=== PATIENT | female | born 2000 ===

== ENCOUNTER 2021-05-04 19:51 | Emergency (ER) | payer SELFPAY ==
[~2021-05-04] VITALS: Ht 162.6 cm; Wt 81.8 kg
[2021-05-04 19:58] VITALS: TEMP 97.2
[2021-05-04 20:23] LABS: BASO % 0.3 % (0.0-2.0); EOS # 0.3 (0.0-0.7); EOS % 2.7 % (0-4.0); GRAN # 4.7 (1.4-6.5); GRAN % 51.4 % (42.2-75.2); HEMATOCRIT 41.1 % (35.0-45.0); HEMOGLOBIN 13.2 g/dl (12.0-15.0); LYMPH # 3.7 (1.2-3.4); LYMPH % 40.2 % (20.0-51.0); MEAN CELL VOLUME 82 fl (80.0-95.0); MEAN CORPUSCULAR HEMOGLOBIN 26 pg (26.0-32.0); MEAN CORPUSCULAR HGB CONC 32 g/dl (33.0-37.0); MEAN PLATELET VOLUME 9.4 fl (7.4-10.4); MONO # 0.5 (0.1-0.6); MONO % 5.2 % (1.7-9.3); PLATELET COUNT 352 K/mm3 (130-400); REDCELL DISTRIBUTION WIDTH-CV 13.7 % (11.5-14.5)
[2021-05-04 20:33] LABS: ALBUMIN 4.7 gm/dL (3.5-5.0); BILIRUBIN,TOTAL 0.2 mg/dL (0.0-1.0); C-REACTIVE PROTEIN 2.5 mg/dL (0.0-0.9); CALCIUM 9.6 mg/dL (8.4-10.2); CREATININE, serum 0.49 (0.52-1.25)
[2021-05-04 22:46] LABS: COLLECTION METHOD CLEAN CATCH
[2021-05-04 22:54] LABS: MUCOUS Present /lpf; PH 5 (5-8); URINE APPEARANCE Clear; URINE BACTERIA None Seen /hpf; URINE BILIRUBIN Negative (NEGATIVE); URINE BLOOD Negative (NEGATIVE); URINE COLOR Yellow; URINE GLUCOSE Negative (NEGATIVE); URINE KETONE Negative (NEGATIVE); URINE LEUKOCYTE ESTERASE Negative (NEGATIVE); URINE NITRATE Negative (NEGATIVE); URINE PROTEIN(semi-quant) Negative (NEGATIVE); URINE RBC 0-2 /hpf; URINE UROBILINOGEN Negative (NEGATIVE)
[2021-05-04] MEDS ORDERED: ZOFRAN ODT4 MG PO (23:26)
[2021-05-04 23:41] VITALS: BP 144/80; PULSE 78
== END 2021-05-04 23:41 | disposition home or self-care (01) ==
LOC: COL.ER 19:51
PROVIDERS: Student in an Organized Health Care Education/Training Program
DX: R10.33 Periumbilical pain (principal); R11.2 Nausea with vomiting, unspecified; Z87.891 Personal history of nicotine dependence; Z32.02 Encounter for pregnancy test, result negative
CPT/HCPCS: J2270; J2405; J7030; Q9967

== ENCOUNTER 2021-10-24 17:37 | Emergency (ER) | payer SELFPAY ==
[~2021-10-24] VITALS: Ht 157.5 cm; Wt 100.0 kg
[~2021-10-24 17:37] MED LIST: ZOFRAN ODT4 MG PO
[2021-10-24 18:32] VITALS: TEMP 98.1
[2021-10-24 20:32] LABS: COLLECTION METHOD CLEAN CATCH
[2021-10-24 20:35] LABS: BASO % 0.2 % (0.0-2.0); EOS # 0.1 K/mm3 (0.0-0.7); EOS % 1.2 % (0.0-4.0); GRAN # 6.7 K/mm3 (1.4-6.5); GRAN % 67.5 % (42.2-75.2); HEMOGLOBIN 12.1 g/dl (12.0-15.0); LYMPH # 2.5 K/mm3 (1.2-3.4); LYMPH % 25.5 % (20.0-51.0); MEAN CELL VOLUME 82 fl (80.0-95.0); MEAN CORPUSCULAR HEMOGLOBIN 27 pg (26-32); MEAN CORPUSCULAR HGB CONC 34 g/dl (33.0-37.0); MEAN PLATELET VOLUME 9.4 fl (7.4-10.4); MONO # 0.5 K/mm3 (0.1-0.6); MONO % 5.3 % (1.7-9.3); PLATELET COUNT 300 K/mm3 (130-400); RED BLOOD COUNT 4.41 M/mm3 (4.10-5.30); REDCELL DISTRIBUTION WIDTH-CV 13.9 % (11.5-14.5)
[2021-10-24 20:38] LABS: MUCOUS Present (NOT PRESENT); PH 6 (5-8); URINE APPEARANCE Hazy (CLEAR/HAZY); URINE BACTERIA None Seen /hpf (NONE SEEN); URINE BILIRUBIN Negative (NEGATIVE); URINE BLOOD Negative (NEGATIVE); URINE COLOR Yellow (YELLOW); URINE GLUCOSE Negative (NEGATIVE); URINE KETONE Negative (NEGATIVE); URINE LEUKOCYTE ESTERASE Negative (NEGATIVE); URINE NITRATE Negative (NEGATIVE); URINE PROTEIN(semi-quant) Negative (NEGATIVE); URINE RBC 0-2 /hpf (0-2); URINE UROBILINOGEN Negative (NEGATIVE)
[2021-10-24 20:51] LABS: ALBUMIN 3.4 gm/dL (3.5-5.0); BILIRUBIN,TOTAL 0.2 mg/dL (0.2-1.2); CALCIUM 9.1 mg/dL (8.4-10.2); CREATININE, serum 0.52 mg/dL (0.57-1.11); POTASSIUM 3.4 mmol/L (3.5-4.5); TOTAL PROTEIN 7.8 gm/dL (6.2-8.1)
[2021-10-24 21:46] VITALS: BP 142/97; PULSE 105
== END 2021-10-24 21:46 | disposition home or self-care (01) ==
LOC: COL.ER 17:37
PROVIDERS: Nurse Practitioner Primary Care
DX: O9A.212 Injury, poisoning and certain other consequences of external causes complicating pregnancy, second trimester (principal); Z3A.17 17 weeks gestation of pregnancy; W01.198A Fall on same level from slipping, tripping and stumbling with subsequent striking against other object, initial encounter
CPT/HCPCS: J7030

== ENCOUNTER 2022-03-31 21:30 | Outpatient (CLI) | payer MEDICAID ==
[~2022-03-31] VITALS: Ht 162.6 cm; Wt 112.7 kg
[2022-03-31 21:15] VITALS: TEMP 98.4
[~2022-03-31 21:30] MED LIST changes: +PRENATAL TABLET PO
== END 2022-03-31 22:50 | disposition home or self-care (01) ==
LOC: LDRO 21:30
DX: O47.03 False labor before 37 completed weeks of gestation, third trimester (principal); Z3A.36 36 weeks gestation of pregnancy

== ENCOUNTER 2022-04-10 06:18 | Inpatient (IN) | payer MEDICAID ==
[2022-04-10] VITALS (63 sets, daily range): BP systolic 100–168; BP diastolic 53–101; PULSE 61–141; TEMP 97.4–99.6
[~2022-04-10] VITALS: Ht 162.6 cm; Wt 112.7 kg
[2022-04-10 07:07] LABS: BASO % 0.2 % (0.0-2.0); EOS # 0.2 K/mm3 (0.0-0.7); EOS % 1.8 % (0.0-4.0); GRAN # 6.6 K/mm3 (1.4-6.5); GRAN % 67.3 % (42.2-75.2); HEMOGLOBIN 10.5 g/dl (12.5-16.0); LYMPH # 2.4 K/mm3 (1.2-3.4); LYMPH % 24.8 % (20.0-51.0); MEAN CELL VOLUME 75 fl (80.0-100.0); MEAN CORPUSCULAR HEMOGLOBIN 23 pg (27-31); MEAN CORPUSCULAR HGB CONC 31 g/dl (33.0-37.0); MEAN PLATELET VOLUME 9.5 fl (7.4-10.4); MONO # 0.6 K/mm3 (0.1-0.6); MONO % 5.6 % (1.7-9.3); PLATELET COUNT 297 K/mm3 (130-400); RED BLOOD COUNT 4.53 M/mm3 (4.10-5.30); REDCELL DISTRIBUTION WIDTH-CV 16.3 % (11.5-14.5)
[2022-04-10 07:18] LABS: HEMATOCRIT 34.1 % (37.0-47.0)
--- NOTE | 2022-04-10 07:25 | NUR ---
0656 pt ambulatory to unit with support person, Bi. PT in room, changed into gown and comfortable in bed. Pt. denies ctx, leaking of fluid, and states she feels baby moving as normal. Updated on plan on care for the day. Pt. has no questions at this time.
--- NOTE | 2022-04-10 08:08 | NUR ---
0808 PT UP TO BATHROOM AT THIS TIME. UNABLE TO TRACE EFM AT THIS TIME. PT RETURNED TO BED AND EFM TRACING CATEGORY 1 AT THIS TIME.
--- NOTE | 2022-04-10 08:21 | NUR ---
0805 DR. MOLINA AT BEDSIDE DISCUSSING AROM WITH PT. PT AGREES. AROM AT 0808 POTENTIAL MECONIUM FLUID NOTED ON RUPTURE. SVE BY DR. MOLINA /. WILL CONTINUE WITH POC.
--- NOTE | 2022-04-10 08:58 | NUR ---
0858 PT UP TO BATHROOM. OFF EFM UNTIL 905. WILL CONTINUE TO MONITOR.
--- NOTE | 2022-04-10 12:19 | NUR ---
0921 PT REQUESTED EPIDURAL. THIS RN SAT PT UP ON SIDE OF BED. UNABLE TO TRACE EFM AT THIS TIME DUE TO MATERNAL POSITION AND HABITUS. 0934 SINGLE SHOT GIVEN BY BEN IBANEZ. PT TOLERATED PROCEDURE WELL. VITAL SIGNS STABLE. PT RETURNED TO WL POSITION. EFM TRACING CATEGORY 1 AT THIS TIME.
--- NOTE | 2022-04-10 12:25 | NUR ---
DIFFICULTY TRACING CONTRACTIONS DUE TO MATERNAL HABITUS. RECOMMEND IUPC PLACEMENT TO DR. MOLINA AT THIS TIME WHILE HE IS PRESENT AT FACILITY. STATES "PT IS MAKING CHANGE" AND DOES NOT FEEL IT IS NECESSARY AT THIS TIME. WILL CONTINUE WITH IOL POC PER ORDERS.
--- NOTE | 2022-04-10 18:20 | NUR ---
Report received from Latanya WEEMS and Jose WEEMS. Pt resting. 1824: FSE not tracing. Pt repositioned and tracing came back. Pt wanting to stay in current position and get some rest. Plan of care explained. Pt verbalized her understanding. 1923: FSE not tracing. SVE completed and external monitors applied. Pt repositioned into karen position. Plan of care explained. Call light within reach.
--- NOTE | 2022-04-10 20:32 | NUR ---
SVE C/+1. Plan of care explained to pt and pushing with contractions. Pt and spouse verbalize their understanding. 2045: Zofran given due to nausea. 2049: Pt begins pushing with this RN and siginficant other. : Unable to determine FHR basline at this time. : Unable to determine contractions due to maternal structure and pushing. Pt able to feel pressure with contractions and push. 2113: called for delivery. 2125: at bedside. Pt prepped for delivery. 2128: Spontaneous delivery of viable female by . Pitocin turned off per protocol. Cord clamped X2 and cut by FOB. to mothers chest where dried and stimulated by nursery RN. Care of assumed by Ana WEEMS. 2131: Spontaneous delivery of intact placenta by . Pitocin resummed at 333mus/hr per protocol. First degree laceration repaired by provided. Plan of care and safety precautions explained to pt and significant other who verbalize their understanding. Pericare provided, pads changed and pt repositioned in bed. Call light within reach.
[2022-04-11] VITALS (7 sets, daily range): BP systolic 124–138; BP diastolic 58–88; PULSE 64–137; TEMP 97.3–98.9
[2022-04-12 07:00] VITALS: BP 146/88; PULSE 89; TEMP 97.6
[2022-04-12] MEDS ORDERED: MOTRIN 800800 MG/TAB PO (08:37)
--- NOTE | 2022-04-12 11:01 | NUR ---
SW approached by cassandra consultant that the family was neeing resources for formula. Per patient's RN, patient has been given the [employer] in addition to other resources. Rn expresses that the family has no other needs at this time.
--- NOTE | 2022-04-12 13:03 | NUR ---
PATIENT GIVEN DISCHARGE INSTRUCTIONS, VERBALIZED UNDERSTANDING.WILL KEEP AND MAKE ALL FOLLOW UP APPOINTMENTS AND CALL WITH ANY QUESTIONS OR CONCERNS. PARTNER AND PATIENT'S MOTHER HERE TO HELP TAKE BELONGINGS DOWN TO CAR. BABY PLACED AND SECURED INTO CAR SEAT. PATIENT REQUESTED TO BE TAKEN DOWN TO CAR IN WHEELCHAIR. PATIENT WHEELED DOWN TO CAR ACCOMPANIED BY PARTNER, MOTHER AND DRAMATIC DIRECTOR.
== END 2022-04-12 13:00 | disposition home or self-care (01) | DRG 807 ==
LOC: LDR 06:18 → OB 06:18
PROVIDERS: ADMIT Obstetrics & Gynecology
PROC: 10E0XZZ Delivery of Products of Conception, External Approach (ICD-10-PCS; principal; 2022-04-10)
PROC: 0HQ9XZZ Repair Perineum Skin, External Approach (ICD-10-PCS; 2022-04-10)
PROC: 10907ZC Drainage of Amniotic Fluid, Therapeutic from Products of Conception, Via Natural or Artificial Opening (ICD-10-PCS; 2022-04-10)
PROC: 3E033VJ Introduction of Other Hormone into Peripheral Vein, Percutaneous Approach (ICD-10-PCS; 2022-04-10)
DX: O36.5930 Maternal care for other known or suspected poor fetal growth, third trimester, not applicable or unspecified (principal); Z37.0 Single live birth; O48.0 Post-term pregnancy; Z3A.40 40 weeks gestation of pregnancy; O99.344 Other mental disorders complicating childbirth; F32.A Depression, unspecified; O99.824 Streptococcus B carrier state complicating childbirth; O77.0 Labor and delivery complicated by meconium in amniotic fluid; O70.0 First degree perineal laceration during delivery; O71.82 Other specified trauma to perineum and vulva
CPT/HCPCS: J2405; J2540; J2590; J2795; J7120